=== PATIENT | female | born 1945 ===

== ENCOUNTER → 2019-10-07 | Outpatient (REF) | payer MEDICARE | LOC: M LAB LCGH 14:19 | PROVIDERS: ATTEND Family Medicine | DX: K46.9 Unspecified abdominal hernia without obstruction or gangrene (principal) ==

== ENCOUNTER → 2019-10-07 | Outpatient (REF) | payer MEDICARE | LOC: M LAB LCGH 12:12 | PROVIDERS: ATTEND Family Medicine | DX: J44.9 Chronic obstructive pulmonary disease, unspecified (principal); R22.2 Localized swelling, mass and lump, trunk ==